=== PATIENT | female | born 1940 | race Asian ===

== ENCOUNTER 2021-02-12 16:32 | Emergency (ER) | payer OTHER ==
[2021-02-12 16:53] LABS: Absolute Lymphocytes (CBC) 0.9 K/uL (0.7-4.9); Basophils % 0.3 % (0-1.3); Hematocrit 33.4 % (36.0-45.0); Lymphocytes % 14.7 % (15.3-44.8); MPV 9.3 fL (7.6-11.3); RBC Red Blood Cell Count 3.74 M/uL (3.86-4.86)
[2021-02-12 16:57] LABS: Protime INR 0.99
[2021-02-12 17:14] LABS: Albumin 3.3 g/dL (3.4-5.0); Bilirubin Direct 0.3 mg/dL (0-0.2); Bilirubin Total 0.6 mg/dL (0.2-1.0); Magnesium 2.2 mg/dL (1.8-2.4); Potassium 5.4 mmol/L (3.5-5.1); Troponin (Emerg Dept Use Only) 0.03 ng/mL (0.0-0.045)
[2021-02-12] MEDS ORDERED: INSULIN -REGULAR HUMAN 50 UNIT/0.5 ML ML ONE (17:42)
--- NOTE | 2021-02-12 17:52 | ER ---
Nurse's Notes [facility] Name: Kenny Pacheco Age: 80 yrs Sex: Female : 1940 Arrival Date: 02/12/2021 Time: 16:35 Bed 18 Private MD: Diagnosis: Atrioventricular block, complete;Bradycardia, unspecified Presentation: 02/12 16:36 Chief complaint: Patient states: Chest pressure, lightheaded, and weak. EMS states: BP ll1 stable, HR 30's, 3rd degree heart block. Coronavirus screen: Client denies travel out of the [place] in the last 14 days. Ebola Screen: Patient denies travel to an Ebola-affected area in the 21 days before illness onset. Initial Sepsis Screen: Does the patient meet any 2 criteria? No. Patient's initial sepsis screen is negative. Does the patient have a suspected source of infection? No. Patient's initial sepsis screen is negative. Risk Assessment: Do you want to hurt yourself or someone else? Patient reports no desire to harm self or others. Onset of symptoms was February 12, 2021. 16:36 Method Of Arrival: EMS ll1 16:36 Acuity: KIM 2 ll1 Historical: - Allergies: 16:37 No Known Allergies; ll1 - PMHx: 16:37 Diabetes mellitus; Hypercholesterolemia; ll1 - Immunization history:: Adult Immunizations up to date, Client reports receiving the 2nd dose of the Covid vaccine, with booster dose. - Social history:: Smoking status: Patient denies any tobacco usage or history of. Screenin:45 Abuse screen: Denies threats or abuse. Denies injuries from another. Nutritional jl7 screening: No deficits noted. Tuberculosis screening: No symptoms or risk factors identified. Fall Risk No fall in past 12 months (0 pts). No secondary diagnosis (0 pts). IV access (20 points). Ambulatory Aid- None/Bed Rest/Nurse Assist (0 pts). Gait- Weak (10 pts.). Mental Status- Oriented to own ability (0 pts). Total Freire Fall Scale indicates Low Risk Score (25-44 pts). Fall prevention measures have been instituted. Side Rails Up X 2 Placed close to Nursing Station Frequent Obs/Assesments occuring As available Patient and Family Educated on Fall Prevention Program and strategies. Assessment: 16:35 Reassessment: KIRK Silva at bedside. PT A\\T\\Ox4. jl7 16:46 Reassessment: Pt placed on defib Pads. jl7 16:53 General: Appears in no apparent distress. Behavior is calm, cooperative. Pain: Denies eo2 pain. Neuro: Level of Consciousness is awake, alert, obeys commands, Oriented to person, place, time, situation, Reports dizziness, since 2 days weakness. Cardiovascular: Denies chest pain, Rhythm is 3rd degree heart block. 16:53 Respiratory: Reports shortness of breath on exertion Breath sounds are clear eo2 bilaterally. GI: No deficits noted. Musculoskeletal: Circulation, motion, and sensation intact. Range of motion: intact in all extremities, Reports weakness in generalized weakness. 16:54 Reassessment: attempted to call Karlee key account executive twice, poor audio quality, pt able to eo2 answer some question, awaiting family arrival at bedside, pt presenty denies CP, CRUZ, Dizziness, at this time; Pt placed on pads Comfort measures met, will continue to monitor. 16:54 Reassessment: family now at bedside. eo2 17:49 Reassessment: Yon BRADLEY at bedside to update pt and family on transfer to [facility] for eo2 pacemaker. Pt remains aaox4, appears in NAD, will continue to monitor. 19:24 Reassessment: Patient and/or family updated on plan of care and expected duration. Pain sm5 level reassessed. Vital Signs: 16:42 BP 189 / 45; Pulse 35; Resp 15; Temp 98.2; Pulse Ox 100% ; Weight 43.54 kg; Height 5 eo2 ft. 1 in. (154.94 cm); Pain 0/10; 16:53 BP 172 / 42; Pulse 35; Resp 16; Pulse Ox 100% ; eo2 17:15 BP 174 / 48; Pulse 36; Resp 17; Pulse Ox 100% ; Pain 0/10; eo2 18:00 BP 156 / 42; Pulse 36; Resp 18; Pulse Ox 100% on R/A; Pain 0/10; eo2 18:15 BP 166 / 41; Pulse 35; Resp 22; Pulse Ox 100% on R/A; Pain 0/10; eo2 18:48 BP 163 / 39; Pulse 34; Resp 19; Pulse Ox 100% on R/A; Pain 0/10; eo2 20:34 BP 143 / 42; Pulse 34; Resp 21; Pulse Ox 100% on R/A; sm5 16:42 Body Mass Index 18.14 (43.54 kg, 154.94 cm) eo2 Vitals: 18:15 Cardiac Rhythm Assessment Other aden; 3rd degree heartblock. eo2 Jh Coma Score: 16:53 Eye Response: spontaneous(4). Verbal Response: oriented(5). Motor Response: obeys eo2 commands(6). Total: 15. ED Course: 16:35 Patient arrived in ED. jr8 16:35 Ricardo Arreguin PA is PHCP. jr8 16:35 Kris Garcia MD is Attending Physician. jr8 16:36 Breanna Davis, SANDRA is Primary Nurse. eo2 16:37 Triage completed. ll1 16:38 Arm band placed on Patient placed in an exam room, on a stretcher. ll1 16:45 Patient has correct armband on for positive identification. Placed in gown. Bed in low jl7 position. Call light in reach. Side rails up X2. lunchroom monitor on. Pulse ox on. NIBP on. Warm blanket given. 16:45 Maintain EMS IV. Dressing intact. Good blood return noted. Site clean \\T\\ dry. Gauge \\T\\ jl 7 site: 20 right AC. 16:53 transfer Awaiting lab results. eo2 16:53 No provider procedures requiring assistance completed. Inserted saline lock: 20 gauge eo2 in right antecubital area, using aseptic technique. 17:32 Glucose, Ancillary Testing Sent. eo2 17:43 XRAY Chest (1 view) In Process Unspecified. EDMS 18:40 Report given to Nova ayala. eo2 18:50 COVID-19 SARS RT PCR (Document "Date of Onset" if Symptomatic) Sent. eo2 18:50 SARS-COV-2 RT PCR Sent. eo2 19:05 Report given to Betty FLORES. eo2 19:12 Roxy Hopson, SANDRA is Primary Nurse. sm5 20:35 Patient transferred, IV remains in place. sm5 Administered Medications: 17:50 Drug: Insulin Regular Human 5 units {Co-Signature: ll1 (Elissa Zuniga RN).} Route: IVP; eo2 Site: left antecubital; 18:20 Follow up: Response: No adverse reaction eo2 Outcome: 17:51 ER care complete, transfer ordered by MD. gary 20:34 Transferred by ground EMS to other acute care facility: [facility]. Transfer form completed. 5 X-rays sent w/ patient. 20:34 Condition: stable 20:34 Instructed on the need for transfer. 20:35 Patient left the ED. 5 Signatures: Dispatcher [employer] EDMS Ricardo Arreguin PA PA jr8 Arely Baxter RN RN jl7 Elissa Zuniga RN RN ll1 Roxy Hopson RN RN sm5 Breanna Davis RN RN eo2 Elissa Zuniga RN ll1 Corrections: (The following items were deleted from the chart) 17:03 16:57 Reassessment: attempted to call Karlee key account executive twice, poor audio quality, pt eo2 able to answer some question, awaiting family arrival at bedside, pt presenty denies CP, SOB, CRUZ, Dizziness, at this time but reports she had been having these symptoms in the past 2 days. Pt placed on pads. Comfort measures met, will continue to monitor. eo2 17:09 16:53 Respiratory: Breath sounds are clear bilaterally. Denies shortness of breath eo2 eo2 17: 16:57 Reassessment: attempted to call Karlee key account executive twice, poor audio quality, pt eo2 able to answer some question, awaiting family arrival at bedside, pt presenty denies CP, SOB, CRUZ, Dizziness, at this time but reports she had been having these symptoms in the past 2 days. Pt placed on pads. Comfort measures met, will continue to monitor. eo2
--- NOTE | 2021-02-12 17:52 | EDPHYS ---
Physician Documentation [facility] Name: Kenny Pacheco Age: 80 yrs Sex: Female : 1940 Arrival Date: 02/12/2021 Time: 16:35 Bed 18 Private MD: ED Physician Kris Garcia HPI: 02/12 16:55 This 80 yrs old Female presents to ER via EMS with complaints of Shortness of jr8 breath/Fatigue. 16:55 This is a 73-year-old female that presented to the emergency room via EMS with a 2-day jr8 history of fatigue, shortness of breath with dyspnea on exertion, chest tightness. EMS stated that patient's heart rate was in the low 30s upon arrival. Patient upon initial presentation is alert and oriented to person, place, time, event. No acute distress.. Historical: - Allergies: 16:37 No Known Allergies; ll1 - PMHx: 16:37 Diabetes mellitus; Hypercholesterolemia; ll1 - Immunization history:: Adult Immunizations up to date, Client reports receiving the 2nd dose of the Covid vaccine, with booster dose. - Social history:: Smoking status: Patient denies any tobacco usage or history of. ROS: 16:55 Eyes: Negative for injury, pain, redness, and discharge, ENT: Negative for injury, jr8 pain, and discharge, Neck: Negative for injury, pain, and swelling, Abdomen/GI: Negative for abdominal pain, nausea, vomiting, diarrhea, and constipation, Back: Negative for injury and pain, MS/Extremity: Negative for injury and deformity, Skin: Negative for injury, rash, and discoloration, Neuro: Negative for headache, weakness, numbness, tingling, and seizure. 16:55 Constitutional: Positive for fatigue. 16:55 Cardiovascular: Positive for chest pain. 16:55 Respiratory: Positive for dyspnea on exertion, shortness of breath. Exam: 16:55 Eyes: Pupils equal round and reactive to light, extra-ocular motions intact. Lids and jr8 lashes normal. Conjunctiva and sclera are non-icteric and not injected. Cornea within normal limits. Periorbital areas with no swelling, redness, or edema. ENT: Nares patent. No nasal discharge, no septal abnormalities noted. Tympanic membranes are normal and external auditory canals are clear. Oropharynx with no redness, swelling, or masses, exudates, or evidence of obstruction, uvula midline. Mucous membranes moist. Neck: Trachea midline, no thyromegaly or masses palpated, and no cervical lymphadenopathy. Supple, full range of motion without nuchal rigidity, or vertebral point tenderness. No Meningismus. Respiratory: Lungs have equal breath sounds bilaterally, clear to auscultation and percussion. No rales, rhonchi or wheezes noted. No increased work of breathing, no retractions or nasal flaring. Abdomen/GI: Soft, non-tender, with normal bowel sounds. No distension or tympany. No guarding or rebound. No evidence of tenderness throughout. Back: No spinal tenderness. No costovertebral tenderness. Full range of motion. Skin: Warm, dry with normal turgor. Normal color with no rashes, no lesions, and no evidence of cellulitis. MS/ Extremity: Pulses equal, no cyanosis. Neurovascular intact. Full, normal range of motion. Neuro: Awake and alert, GCS 15, oriented to person, place, time, and situation. Cranial nerves II-XII grossly intact. Motor strength 5/5 in all extremities. Sensory grossly intact. 16:55 Cardiovascular: Rate: bradycardic, Rhythm: irregular, Pulses: Pulses are 1+ in right radial artery and left radial artery. Heart sounds: normal, normal S1and S2, murmur, systolic, grade 2 over 6, Edema: is not appreciated, JVD: is not appreciated. 16:55 ECG was reviewed by the Attending Physician. jr8 Vital Signs: 16:42 BP 189 / 45; Pulse 35; Resp 15; Temp 98.2; Pulse Ox 100% ; Weight 43.54 kg; Height 5 eo2 ft. 1 in. (154.94 cm); Pain 0/10; 16:53 BP 172 / 42; Pulse 35; Resp 16; Pulse Ox 100% ; eo2 17:15 BP 174 / 48; Pulse 36; Resp 17; Pulse Ox 100% ; Pain 0/10; eo2 18:00 BP 156 / 42; Pulse 36; Resp 18; Pulse Ox 100% on R/A; Pain 0/10; eo2 18:15 BP 166 / 41; Pulse 35; Resp 22; Pulse Ox 100% on R/A; Pain 0/10; eo2 18:48 BP 163 / 39; Pulse 34; Resp 19; Pulse Ox 100% on R/A; Pain 0/10; eo2 20:34 BP 143 / 42; Pulse 34; Resp 21; Pulse Ox 100% on R/A; sm5 16:42 Body Mass Index 18.14 (43.54 kg, 154.94 cm) eo2 Jh Coma Score: 16:53 Eye Response: spontaneous(4). Verbal Response: oriented(5). Motor Response: obeys eo2 commands(6). Total: 15. MDM: 16:35 Patient medically screened. jr8 16:55 Data reviewed: vital signs, nurses notes, lab test result(s), EKG, radiologic studies, jr8 plain films. Data interpreted: Pulse oximetry: on room air is 100 %. Interpretation: normal. Counseling: I had a detailed discussion with the patient and/or guardian regarding: the historical points, exam findings, and any diagnostic results supporting the discharge/admit diagnosis, lab results, radiology results, the need to transfer to another facility, [facility] does not immediately have the required specialist. 17:50 ED course: Dr. Kendrick at [facility] accepted patient for further evaluation for need for jr8 pacemaker secondary to complete heart block.. 02/12 16:35 Order name: Basic Metabolic Panel; Complete Time: 17:18 8 02/12 16:35 Order name: CBC with Diff; Complete Time: 17:05 8 02/12 16:35 Order name: LFT's; Complete Time: 17:18 8 02/12 16:35 Order name: Magnesium; Complete Time: 17:18 8 02/12 16:35 Order name: NT PRO-BNP; Complete Time: 17:18 jr8 02/12 16:35 Order name: PT-INR; Complete Time: 17:05 8 02/12 16:35 Order name: Troponin (emerg Dept Use Only); Complete Time: 17:18 jr8 02/12 16:35 Order name: XRAY Chest (1 view); Complete Time: 18:16 jr8 02/12 16:35 Order name: EKG; Complete Time: 16:36 8 02/12 17:09 Order name: Glucose, Ancillary Testing EDMS 02/12 17:24 Order name: COVID-19 SARS RT PCR (Document "Date of Onset" if Symptomatic) 3 02/12 17:25 Order name: SARS-COV-2 RT PCR; Complete Time: 20:05 EDMS 02/12 18:34 Order name: Glucose, Ancillary Testing; Complete Time: 18:39 EDMS 02/12 16:35 Order name: Cardiac monitoring; Complete Time: 17:39 jr8 02/12 16:35 Order name: EKG - Nurse/Tech; Complete Time: 17:39 jr8 02/12 16:35 Order name: IV Saline Lock; Complete Time: 17:39 jr8 02/12 16:35 Order name: Labs collected and sent; Complete Time: 17:39 jr8 02/12 16:35 Order name: O2 Per Protocol; Complete Time: 17:39 jr8 02/12 16:35 Order name: O2 Sat Monitoring; Complete Time: 17:39 jr8 EC:55 Rate is 33 beats/min. Rhythm is irregular, complete heart block. QRS [place] is Normal. jr8 QRS interval is normal at 102 msec. QT interval is prolonged. No Q waves. T waves are Normal. No ST changes noted. Clinical impression: 3rd degree heart block. Interpreted by me. Reviewed by me. Administered Medications: 17:50 Drug: Insulin Regular Human 5 units {Co-Signature: ll1 (Elissa Zuniga RN).} Route: IVP; eo2 Site: left antecubital; 18:20 Follow up: Response: No adverse reaction eo2 Disposition: 02/13 18:57 Co-signature as Attending Physician, Kris Garcia MD I agree with the assessment and jose plan of care. Disposition Summary: 02/12/21 17:51 Transfer Ordered Transfer Location: Other Acute Care Facility jr8 Reason: Higher level of care jr8 Condition: Fair jr8 Problem: new jr8 Symptoms: are unchanged jr8 Accepting Physician: Dr. Kendrick(02/12/21 20:35) sm5 Diagnosis - Atrioventricular block, complete jr8 - Bradycardia, unspecified jr8 Forms: - Medication Reconciliation Form jr8 - SBAR form jr8 Signatures: Dispatcher [employer] Kris Ramires MD MD cha Roszak, Josh, PA PA jr8 Elissa Zuniga RN RN ll1 Roxy Hopson RN RN smBreanna Thornton RN RN eo2 Elissa Zuniga RN ll1 Corrections: (The following items were deleted from the chart) 02/12 20:35 17:51 Dr. Kendrick jr8 sm5
--- NOTE | 2021-02-12 18:09 | RAD REPORT ---
EXAM DESCRIPTION: RAD - Chest Single View - 02/12/2021 5:43 pm CLINICAL HISTORY: DYSPNEA COMPARISON: None TECHNIQUE: AP portable chest image was obtained 02/12/2021 5:43 pm . FINDINGS: No dense mass or consolidation. Baseline chest exam shows prominent interstitial pattern t hat could be fibrosis, interstitial infiltrate, interstitial edema or a combination. Resuscitation pa ddles overlie the left chest and upper left abdomen. Heart and vasculature are normal. No measurable pleural effusion and no pneumothorax. No acute bony abnormality seen. No acute aortic findings suspec dionne. IMPRESSION: No peripheral mass or consolidation. Prominent interstitial pattern on baseline examination can represent fibrosis, interstitial edema, in terstitial infiltrate or a combination.
[2021-02-12 20:44] VITALS: TEMP 98.2; O2SAT 100
[2021-02-12 20:53] VITALS: BP 143/42
--- NOTE | 2021-02-13 07:36 | EKG ---
Test Date: 2021-02-12 Test Time: 16:36:12 Breaking Machine Operator: CURTIS MEASUREMENT RESULTS: Intervals: Rate: 33 TX: QRSD: 102 QT: 664 QTc: 491 [place]: P: TX: QRS: 67 T: 21 INTERPRETIVE STATEMENTS: Marked sinus bradycardia with AV dissociation and Junctional bradycardia with sinus/atrial capture Incomplete right bundle branch block Nonspecific ST abnormality Prolonged QT Abnormal ECG No previous ECG available for comparison Electronically Signed On 02-13-21 07:34:44 MANAGER WINTER by Elton Babcock
== END 2021-02-12 20:35 ==
LOC: ER 16:32
DX: I44.2 Atrioventricular block, complete (principal); R00.1 Bradycardia, unspecified; E11.9 Type 2 diabetes mellitus without complications; E78.00 Pure hypercholesterolemia, unspecified; Z20.822 Contact with and (suspected) exposure to COVID-19
CPT/HCPCS: 93005; 85025; 80048; 36415; 83735; 85610; 82947 ×2; 80076; 84484; 83880; 71045; 96374; 99285; U0003